=== PATIENT | female | born 1970 | race Caucasian/White ===

== ENCOUNTER → 2017-03-26 | Emergency (ER) | payer OTHER ==
[~2017-03-26] VITALS: Ht 170.2 cm; Wt 55.3 kg
[~2017-03-26] MED LIST: CLONAZEPAM0.5 M1; FLUCONAZOLE150 MG PO; PROZAC40 MG; TERCONAZOLE20 GM VAG
== END | disposition home or self-care (01) ==
LOC: ER 17:45
DX: L29.2 Pruritus vulvae (principal)

== ENCOUNTER 2021-07-01 17:15 | Outpatient (CLI) | payer OTHER | END 2021-07-01 17:28 | disposition home or self-care (01) | LOC: RAD 17:15 | PROVIDERS: ATTEND Physical Medicine & Rehabilitation | DX: S92.912A Unspecified fracture of left toe(s), initial encounter for closed fracture (principal) ==